=== PATIENT | male | born 1970 | race Caucasian/White ===

== ENCOUNTER 2021-12-24 19:18 | Emergency (ER) | payer OTHER ==
[~2021-12-24] VITALS: Ht 167.6 cm; Wt 117.9 kg
== END 2021-12-24 23:50 | disposition home or self-care (01) ==
LOC: ER 19:18
DX: S70.12XA Contusion of left thigh, initial encounter (principal); W22.8XXA Striking against or struck by other objects, initial encounter
CPT/HCPCS: 93971; 99283-25

== ENCOUNTER → 2025-03-16 | Outpatient (CLI) | payer BC ==
[2025-03-16 15:40] LABS: Microalbumin, Random Urine 11.7 mg/L (0.000-20.000)
[2025-03-16 15:41] LABS: Microalb/Creat Ratio UR, Rand 10.54 mg/g (0.000-30.000)
== END | disposition home or self-care (01) ==
LOC: LAB 09:09 → LAB SHORT 09:09
PROVIDERS: Family Medicine
DX: E11.8 Type 2 diabetes mellitus with unspecified complications (principal)
CPT/HCPCS: 82043; 82570